=== PATIENT | female | born 1935 | race Caucasian/White ===

== ENCOUNTER 2019-06-05 12:52 | Inpatient (IN) ==
[2019-06-05 13:14] LABS: Hematocrit 36.8 % (35.3-44.9); Hemoglobin 11.6 g/dL (11.5-15.4); Mean Corpuscular HGB Conc 31.5 g/dL (31.6-35.5); Mean Corpuscular Hemoglobin 30.5 pg (28.0-33.3); Mean Corpuscular Volume 96.8 fL (83.0-100.0); Mean Platelet Volume 12.1 fL (9.4-12.4); Platelet Count 168 K/mcL (140-400); Red Cell Distribution Width 12.7 % (11.5-14.5); White Blood Count 4.8 K/mcL (4.3-11.1)
[2019-06-05 13:32] LABS: BUN/Creatinine Ratio 21 (6-26); Blood Urea Nitrogen 17 mg/dL (8-23); Calcium 9.4 mg/dL (8.6-10.3); Carbon Dioxide 24 mEq/L (23-29); Chloride 106 mEq/L (98-107); Glucose 97 mg/dL (70-105); Osmolality,Calculated 289 (280-300); Potassium 3.9 mEq/L (3.5-5.1); Sodium 139 mEq/L (136-145); Troponin I 0.03 ng/mL (< 0.04); eGFR For African Americans > 60 (> 60); eGFR For Non-African Americans > 60 (> 60)
[2019-06-05 13:45] LABS: Bilirubin,Urine Small (Negative); Blood,Urine Negative (Negative); Clarity,Urine Clear (Clear); Color,Urine Yellow (Yellow); Glucose,Urine (UA) Normal (Normal); Ketones,Urine 15 mg/dL (Negative); Leukocyte Esterase,Urine Moderate (Negative); Nitrite,Urine Negative (Negative); Protein,Urine Negative (Neg-Trace); Specific Gravity,Urine 1.022 (1.010-1.025); Urobilinogen,Urine Normal (Normal)
[2019-06-05 13:47] LABS: Bacteria,Urine None Seen per hpf (None-Few); Hyaline Casts,Urine Moderate per lpf (None-Few); RBC,Urine 0-3 per hpf (0-3); Squamous Epithelial Cell,Urine Many per lpf (None-Few); WBC,Urine 15-30 per hpf (0-3)
[2019-06-05 14:04] LABS: Yeast,Urine Few per hpf (None Seen)
[2019-06-05 14:27] LABS: Activated Partial Thrombo Time 34.6 Seconds (26.0-36.0); INR 2.1; Prothrombin Time 23.8 Seconds (9.4-12.1)
[2019-06-05] MEDS ORDERED: Aspirin Enteric Coated 325 MG Tablet PO ONE (15:25)
[2019-06-05] MEDS ORDERED: 0.9 % Sodium Chloride 1,000 ML IVC SCH (15:30)
[2019-06-05] MEDS ORDERED: Isovue-370 500 ML BOTTLE IVP ONE (15:35)
[2019-06-05] MEDS ORDERED: Piperacillin/Tazobactam 3.375 GM in 0.9 % Sodium Chloride Mini Bag 100 ML IVPB SCH (17:00)
[2019-06-05] MEDS: Aspirin Enteric Coated 81 MG Tablet PO SCH (18:16)
[2019-06-05] MEDS: Ertapenem 1,000 MG in 0.9 % Sodium Chloride Mini Bag 100 ML IVPB SCH (18:19)
[2019-06-05 18:29] LABS: Folate 12.5 ng/mL (3.0-16.0)
[2019-06-05] MEDS: Apixaban 5 MG TABLET PO SCH (21:09)
[2019-06-06] MEDS ORDERED: Piperacillin/Tazobactam 3.375 GM in 0.9 % Sodium Chloride Mini Bag 100 ML IVPB SCH
[2019-06-06] MEDS ORDERED: *HR* Metoprolol 5 MG/5 ML VIAL IVP ONE (04:16)
[2019-06-06 04:49] LABS: Hematocrit 35.1 % (35.3-44.9); Hemoglobin 11.4 g/dL (11.5-15.4); Mean Corpuscular HGB Conc 32.5 g/dL (31.6-35.5); Mean Corpuscular Hemoglobin 30.8 pg (28.0-33.3); Mean Corpuscular Volume 94.9 fL (83.0-100.0); Mean Platelet Volume 12.3 fL (9.4-12.4); Platelet Count 223 K/mcL (140-400); Red Cell Distribution Width 12.8 % (11.5-14.5); White Blood Count 6.1 K/mcL (4.3-11.1)
[2019-06-06 05:07] LABS: Alanine Aminotransferase 8 Units/L (7-52); Albumin 3.8 g/dL (3.5-5.7); Albumin/Globulin Ratio 1.7 (1.1-2.2); Alkaline Phosphatase 55 Units/L (34-104); Aspartate Amino Transferase 17 Units/L (13-39); BUN/Creatinine Ratio 16 (6-26); Bilirubin,Total 0.8 mg/dL (0.3-1.0); Blood Urea Nitrogen 12 mg/dL (8-23); Calcium 9.1 mg/dL (8.6-10.3); Carbon Dioxide 23 mEq/L (23-29); Chloride 107 mEq/L (98-107); Chol/HDL Ratio 3.1 (0-4.9); Cholesterol 124 mg/dL (< 200); Globulin 2.3 g/dL (2.4-3.5); Glucose 84 mg/dL (70-105); HDL Cholesterol 40 mg/dL (40-59); LDL Cholesterol,Calculated 69 mg/dL (0-99); Osmolality,Calculated 289 (280-300); Potassium 3.6 mEq/L (3.5-5.1); Sodium 140 mEq/L (136-145); Total Protein 6.1 g/dL (6.4-8.9); Triglycerides 76 mg/dL (< 150); eGFR For African Americans > 60 (> 60); eGFR For Non-African Americans > 60 (> 60)
[2019-06-06 06:03] LABS: INR 1.5; Prothrombin Time 17.5 Seconds (9.4-12.1)
[2019-06-06] MEDS: Ertapenem 1,000 MG in 0.9 % Sodium Chloride Mini Bag 100 ML IVPB SCH (09:07)
[2019-06-06 10:33] LABS: Estimated Average Glucose 105 mg/dl
[2019-06-06] MEDS ORDERED: Cyanocobalamin (B-12) 1,000 MCG/ML VIAL IM ONE (13:44)
[2019-06-06] MEDS: Apixaban 5 MG TABLET PO SCH ×2 (15:02→21:19)
[2019-06-06] MEDS: Aspirin Enteric Coated 81 MG Tablet PO SCH (15:02)
[2019-06-06] MEDS: Cyanocobalamin (B-12) 1,000 MCG TABLET PO SCH (15:02)
[2019-06-07 01:58] LABS: Hematocrit 37.9 % (35.3-44.9); Hemoglobin 12.3 g/dL (11.5-15.4); Mean Corpuscular HGB Conc 32.5 g/dL (31.6-35.5); Mean Corpuscular Hemoglobin 31.8 pg (28.0-33.3); Mean Corpuscular Volume 97.9 fL (83.0-100.0); Mean Platelet Volume 11.7 fL (9.4-12.4); Platelet Count 212 K/mcL (140-400); Red Blood Count 3.87 M/mcL (3.82-4.97); Red Cell Distribution Width 12.8 % (11.5-14.5); White Blood Count 6.2 K/mcL (4.3-11.1)
[2019-06-07 02:17] LABS: BUN/Creatinine Ratio 19 (6-26); Blood Urea Nitrogen 16 mg/dL (8-23); Calcium 9.3 mg/dL (8.6-10.3); Carbon Dioxide 26 mEq/L (23-29); Chloride 107 mEq/L (98-107); Glucose 89 mg/dL (70-105); Osmolality,Calculated 291 (280-300); Potassium 3.7 mEq/L (3.5-5.1); Sodium 140 mEq/L (136-145); eGFR For African Americans > 60 (> 60); eGFR For Non-African Americans > 60 (> 60)
[2019-06-07] MEDS: Apixaban 5 MG TABLET PO SCH ×2 (08:26→20:17)
[2019-06-07] MEDS: Cyanocobalamin (B-12) 1,000 MCG TABLET PO SCH (08:26)
[2019-06-07] MEDS: Aspirin Enteric Coated 81 MG Tablet PO SCH (08:26)
[2019-06-07] MEDS: Ertapenem 1,000 MG in 0.9 % Sodium Chloride Mini Bag 100 ML IVPB SCH (08:29)
[2019-06-07] MEDS: Fluconazole 100 MG TABLET PO SCH (13:30)
[2019-06-08] MEDS ORDERED: *HR* Metoprolol 5 MG/5 ML VIAL IVP ONE (00:28)
[2019-06-08] MEDS: *HR* Metoprolol 5 MG/5 ML VIAL IVP PRN (06:27)
[2019-06-08] MEDS: Aspirin Enteric Coated 81 MG Tablet PO SCH (10:31)
[2019-06-08] MEDS: Fluconazole 100 MG TABLET PO SCH (10:32)
[2019-06-08] MEDS: Apixaban 5 MG TABLET PO SCH ×2 (10:33→21:04)
[2019-06-08] MEDS: Cyanocobalamin (B-12) 1,000 MCG TABLET PO SCH (10:34)
[2019-06-09] MEDS: *HR* Metoprolol 5 MG/5 ML VIAL IVP PRN (04:42)
[2019-06-09] MEDS: Fluconazole 100 MG TABLET PO SCH (07:56)
[2019-06-09] MEDS: Cyanocobalamin (B-12) 1,000 MCG TABLET PO SCH (07:56)
[2019-06-09] MEDS: Apixaban 5 MG TABLET PO SCH ×2 (07:56→22:09)
[2019-06-09] MEDS: Aspirin Enteric Coated 81 MG Tablet PO SCH (07:58)
[2019-06-10 00:58] LABS: Hematocrit 35.8 % (35.3-44.9); Hemoglobin 11.6 g/dL (11.5-15.4); Mean Corpuscular HGB Conc 32.4 g/dL (31.6-35.5); Mean Corpuscular Hemoglobin 31.6 pg (28.0-33.3); Mean Corpuscular Volume 97.5 fL (83.0-100.0); Mean Platelet Volume 12.2 fL (9.4-12.4); Platelet Count 221 K/mcL (140-400); Red Blood Count 3.67 M/mcL (3.82-4.97); Red Cell Distribution Width 12.9 % (11.5-14.5); White Blood Count 5.9 K/mcL (4.3-11.1)
[2019-06-10 01:15] LABS: BUN/Creatinine Ratio 36 (6-26); Blood Urea Nitrogen 28 mg/dL (8-23); Calcium 9.3 mg/dL (8.6-10.3); Carbon Dioxide 26 mEq/L (23-29); Chloride 109 mEq/L (98-107); Glucose 101 mg/dL (70-105); Osmolality,Calculated 300 (280-300); Potassium 3.6 mEq/L (3.5-5.1); Sodium 142 mEq/L (136-145); eGFR For African Americans > 60 (> 60); eGFR For Non-African Americans > 60 (> 60)
[2019-06-10] MEDS: Apixaban 5 MG TABLET PO SCH ×2 (08:04→21:12)
[2019-06-10] MEDS: Cyanocobalamin (B-12) 1,000 MCG TABLET PO SCH (08:04)
[2019-06-10] MEDS: Aspirin Enteric Coated 81 MG Tablet PO SCH (08:04)
[2019-06-11] MEDS: Cyanocobalamin (B-12) 1,000 MCG TABLET PO SCH (08:55)
[2019-06-11] MEDS: Apixaban 5 MG TABLET PO SCH ×2 (08:55→20:10)
[2019-06-11] MEDS: Aspirin Enteric Coated 81 MG Tablet PO SCH (08:55)
[2019-06-12] MEDS: Aspirin Enteric Coated 81 MG Tablet PO SCH (09:02)
[2019-06-12] MEDS: Cyanocobalamin (B-12) 1,000 MCG TABLET PO SCH (09:02)
[2019-06-12] MEDS: Apixaban 5 MG TABLET PO SCH (09:02)
[2019-06-12 11:38] VITALS: BP 147/86
== END 2019-06-12 15:12 | DRG 689 ==
LOC: 3BNU 12:52 → EMEROOARM 12:52 → 3BNU 15:27
PROVIDERS: ADMIT Family Medicine; ATTEND Family Medicine

== ENCOUNTER 2019-11-26 10:53 | Observation (INO) ==
[2019-11-26 11:36] LABS: Basophils # 0.1 K/mcL (0.0-0.2); Basophils % 0.5 %; Eosinophils # 0.1 K/mcL (0.0-0.6); Eosinophils % 1.1 %; Hemoglobin 12.3 g/dL (11.5-15.4); Immature Granulocytes % 0.3 % (0-4); Lymphocytes # 1.1 K/mcL (0.6-4.6); Lymphocytes % 10.5 %; Mean Corpuscular HGB Conc 32.4 g/dL (31.6-35.5); Mean Corpuscular Hemoglobin 30.8 pg (28.0-33.3); Mean Platelet Volume 11.1 fL (9.4-12.4); Monocytes # 0.7 K/mcL (0.0-1.3); Monocytes % 6.3 %; Neutrophils # 8.4 K/mcL (1.6-8.9); Platelet Count 403 K/mcL (140-400); Red Cell Distribution Width 13.8 % (11.5-14.5); Segmented Neutrophils % 81.3 %; White Blood Count 10.3 K/mcL (4.3-11.1)
[2019-11-26 12:03] LABS: BUN/Creatinine Ratio 27 (6-26); Blood Urea Nitrogen 21 mg/dL (8-23); Calcium 8.8 mg/dL (8.6-10.3); Carbon Dioxide 25 mEq/L (23-29); Chloride 104 mEq/L (98-107); Glucose 89 mg/dL (70-105); Osmolality,Calculated 282 (280-300); Potassium 4.3 mEq/L (3.5-5.1); Sodium 135 mEq/L (136-145); Troponin I < 0.03 ng/mL (< 0.04); eGFR For African Americans > 60 (> 60); eGFR For Non-African Americans > 60 (> 60)
[2019-11-26 12:36] LABS: Amorphous Sediment,Urine Few per hpf (None-Few); Bacteria,Urine Moderate per hpf (None-Few); Bilirubin,Urine Negative (Negative); Blood,Urine Negative (Negative); Calcium Oxalate Crystals,Urine Present; Clarity,Urine Turbid (Clear); Color,Urine Yellow (Yellow); Glucose,Urine (UA) Normal (Normal); Ketones,Urine Negative (Negative); Leukocyte Esterase,Urine Negative (Negative); Mucus,Urine Many per lpf (None-Few); Nitrite,Urine Positive (Negative); PH,Urine 6.5 pH Units (5.0-8.0); Protein,Urine Trace mg/dL (Neg-Trace); Specific Gravity,Urine 1.021 (1.010-1.025); Squamous Epithelial Cell,Urine Few per hpf (None-Few); Urobilinogen,Urine Normal (Normal); WBC,Urine 0-3 per hpf (0-3)
[2019-11-26] MEDS ORDERED: Naloxone 0.4 MG/ML INJ IVP PRN (14:37)
[2019-11-26] MEDS: Apixaban 5 MG TABLET PO SCH (20:50)
[2019-11-27 02:33] LABS: Hematocrit 32.7 % (35.3-44.9); Mean Corpuscular HGB Conc 31.5 g/dL (31.6-35.5); Mean Corpuscular Hemoglobin 29.3 pg (28.0-33.3); Mean Corpuscular Volume 93.2 fL (83.0-100.0); Mean Platelet Volume 11.3 fL (9.4-12.4); Platelet Count 386 K/mcL (140-400); Red Blood Count 3.51 M/mcL (3.82-4.97); White Blood Count 11.4 K/mcL (4.3-11.1)
[2019-11-27 02:37] LABS: Hemoglobin 10.3 g/dL (11.5-15.4)
[2019-11-27 02:45] LABS: BUN/Creatinine Ratio 29 (6-26); Blood Urea Nitrogen 22 mg/dL (8-23); Calcium 8.4 mg/dL (8.6-10.3); Carbon Dioxide 25 mEq/L (23-29); Chloride 104 mEq/L (98-107); Glucose 87 mg/dL (70-105); Osmolality,Calculated 281 (280-300); Potassium 4.2 mEq/L (3.5-5.1); Sodium 134 mEq/L (136-145); eGFR For African Americans > 60 (> 60); eGFR For Non-African Americans > 60 (> 60)
[2019-11-27] MEDS: DilTIAZem CD (24hr) 120 MG CAP.ER.24H PO SCH (08:17)
[2019-11-27] MEDS: Apixaban 5 MG TABLET PO SCH ×2 (08:17→21:18)
[2019-11-27] MEDS: Artificial Tears SOLN 15 ML BOTTLE BOTH EYES SCH ×2 (16:38→21:22)
[2019-11-28 03:23] LABS: Basophils # 0.1 K/mcL (0.0-0.2); Basophils % 0.5 %; Eosinophils # 0.4 K/mcL (0.0-0.6); Eosinophils % 3.1 %; Hematocrit 31.1 % (35.3-44.9); Immature Granulocytes % 0.4 % (0-4); Lymphocytes # 1.3 K/mcL (0.6-4.6); Lymphocytes % 11.5 %; Mean Corpuscular HGB Conc 32.2 g/dL (31.6-35.5); Mean Corpuscular Hemoglobin 30.8 pg (28.0-33.3); Mean Corpuscular Volume 95.7 fL (83.0-100.0); Mean Platelet Volume 11.2 fL (9.4-12.4); Monocytes # 0.9 K/mcL (0.0-1.3); Monocytes % 8.4 %; Neutrophils # 8.5 K/mcL (1.6-8.9); Platelet Count 371 K/mcL (140-400); Red Blood Count 3.25 M/mcL (3.82-4.97); Red Cell Distribution Width 13.9 % (11.5-14.5); Segmented Neutrophils % 76.1 %; White Blood Count 11.2 K/mcL (4.3-11.1)
[2019-11-28 03:39] LABS: BUN/Creatinine Ratio 32 (6-26); Blood Urea Nitrogen 23 mg/dL (8-23); Calcium 8.4 mg/dL (8.6-10.3); Carbon Dioxide 24 mEq/L (23-29); Chloride 105 mEq/L (98-107); Glucose 88 mg/dL (70-105); Osmolality,Calculated 283 (280-300); Potassium 4.1 mEq/L (3.5-5.1); Sodium 135 mEq/L (136-145); eGFR For African Americans > 60 (> 60); eGFR For Non-African Americans > 60 (> 60)
[2019-11-28] MEDS: DilTIAZem CD (24hr) 120 MG CAP.ER.24H PO SCH (07:56)
[2019-11-28] MEDS: Apixaban 5 MG TABLET PO SCH ×2 (07:56→20:43)
[2019-11-28] MEDS: Artificial Tears SOLN 15 ML BOTTLE BOTH EYES SCH ×4 (07:56→20:44)
[2019-11-28] MEDS ORDERED: Fosfomycin Tromethamine 3 GM Packet PO ONE ×2 (09:45→10:00)
[2019-11-28] MEDS ORDERED: levoFLOXacin 750 MG TABLET PO SCH (10:00)
[2019-11-28 17:12] LABS: Adenovirus Not Detected (Not Detect); Bordetella Pertussis Not Detected (Not Detect); Chlamydophila pneumoniae Not Detected (Not Detect); Coronavirus 229E Not Detected (Not Detect); Coronavirus HKU1 Not Detected (Not Detect); Coronavirus NL63 Not Detected (Not Detect); Coronavirus OC43 Not Detected (Not Detect); Human Metapneumovirus Not Detected (Not Detect); Human Rhinovirus/Enterovirus Not Detected (Not Detect); Influenza A Subtype 2009 H1 Not Detected (Not Detect); Influenza B Not Detected (Not Detect); Mycoplasma pneumoniae Not Detected (Not Detect); Parainfluenza Virus 1 Not Detected (Not Detect); Parainfluenza Virus 2 Not Detected (Not Detect); Parainfluenza Virus 3 Not Detected (Not Detect); Parainfluenza Virus 4 Not Detected (Not Detect); Respiratory Syncytial Virus Not Detected (Not Detect); SARS-CoV-2 Not Detected (Not Detect)
[2019-11-29 05:28] LABS: Basophils # 0.1 K/mcL (0.0-0.2); Basophils % 0.7 %; Eosinophils # 0.1 K/mcL (0.0-0.6); Eosinophils % 1.2 %; Hematocrit 32.8 % (35.3-44.9); Hemoglobin 10.2 g/dL (11.5-15.4); Immature Granulocytes % 0.6 % (0-4); Lymphocytes # 1.3 K/mcL (0.6-4.6); Lymphocytes % 12.5 %; Mean Corpuscular HGB Conc 31.1 g/dL (31.6-35.5); Mean Corpuscular Hemoglobin 30.3 pg (28.0-33.3); Mean Corpuscular Volume 97.3 fL (83.0-100.0); Mean Platelet Volume 10.9 fL (9.4-12.4); Monocytes # 0.9 K/mcL (0.0-1.3); Monocytes % 8.5 %; Neutrophils # 7.8 K/mcL (1.6-8.9); Platelet Count 396 K/mcL (140-400); Red Blood Count 3.37 M/mcL (3.82-4.97); Red Cell Distribution Width 13.9 % (11.5-14.5); Segmented Neutrophils % 76.5 %; White Blood Count 10.2 K/mcL (4.3-11.1)
[2019-11-29 05:33] LABS: BUN/Creatinine Ratio 32 (6-26); Blood Urea Nitrogen 24 mg/dL (8-23); Calcium 8.5 mg/dL (8.6-10.3); Carbon Dioxide 27 mEq/L (23-29); Chloride 105 mEq/L (98-107); Glucose 89 mg/dL (70-105); Osmolality,Calculated 284 (280-300); Potassium 4.5 mEq/L (3.5-5.1); Sodium 135 mEq/L (136-145); eGFR For African Americans > 60 (> 60); eGFR For Non-African Americans > 60 (> 60)
[2019-11-29 07:01] VITALS: BP 117/77
[2019-11-29] MEDS: DilTIAZem CD (24hr) 120 MG CAP.ER.24H PO SCH (07:26)
[2019-11-29] MEDS: Apixaban 5 MG TABLET PO SCH (07:26)
[2019-11-29] MEDS: Artificial Tears SOLN 15 ML BOTTLE BOTH EYES SCH (07:26)
[2019-11-29] MEDS ORDERED: Furosemide 40 MG/4 ML VIAL IVP ONE (07:45)
[2019-11-29] MEDS ORDERED: Isovue-370 500 ML BOTTLE IVP ONE (07:47)
[2019-11-29] MEDS ORDERED: FLU Vac QV 20-21 (6Month+)/PF 0.5 ML SYRINGE IM ONE (10:19)
== END 2019-11-29 13:10 | disposition home health service (06) ==
LOC: 3ANU 10:53 → EMEROOARM 10:53 → SUATTDRO 13:32 → 3ANU 14:19
PROVIDERS: ADMIT Internal Medicine; ATTEND Family Medicine

== ENCOUNTER 2019-11-30 12:23 | Observation (INO) ==
[2019-11-30] MEDS ORDERED: Isovue-370 500 ML BOTTLE IVP ONE (12:29)
[2019-11-30 13:01] LABS: Hematocrit 38.4 % (35.3-44.9); Hemoglobin 11.7 g/dL (11.5-15.4); Mean Corpuscular HGB Conc 30.5 g/dL (31.6-35.5); Mean Corpuscular Hemoglobin 29.6 pg (28.0-33.3); Mean Corpuscular Volume 97.2 fL (83.0-100.0); Mean Platelet Volume 10.7 fL (9.4-12.4); Platelet Count 473 K/mcL (140-400); Red Blood Count 3.95 M/mcL (3.82-4.97); Red Cell Distribution Width 14.2 % (11.5-14.5); White Blood Count 9.6 K/mcL (4.3-11.1)
[2019-11-30 13:09] LABS: INR 1.8; Prothrombin Time 20.1 Seconds (9.4-12.1)
[2019-11-30 13:12] LABS: Activated Partial Thrombo Time 31.2 Seconds (26.0-36.0)
[2019-11-30 13:15] LABS: BUN/Creatinine Ratio 24 (6-26); Blood Urea Nitrogen 20 mg/dL (8-23); Calcium 8.9 mg/dL (8.6-10.3); Carbon Dioxide 24 mEq/L (23-29); Chloride 103 mEq/L (98-107); Glucose 84 mg/dL (70-105); Osmolality,Calculated 278 (280-300); Potassium 4.4 mEq/L (3.5-5.1); Sodium 133 mEq/L (136-145); eGFR For African Americans > 60 (> 60); eGFR For Non-African Americans > 60 (> 60)
[2019-11-30 13:38] LABS: Troponin I < 0.03 ng/mL (< 0.04)
[2019-11-30] MEDS ORDERED: Azithromycin 500 MG in 0.9 % Sodium Chloride 250 ML IVPB ONE (14:23)
[2019-11-30] MEDS ORDERED: cefTRIAXone 1,000 MG in Water for inj. (sterile) 10 ML IVP ONE (14:23)
[2019-11-30 14:42] LABS: Bilirubin,Urine Negative (Negative); Blood,Urine Negative (Negative); Clarity,Urine Clear (Clear); Color,Urine Yellow (Yellow); Glucose,Urine (UA) Normal (Normal); Ketones,Urine Negative (Negative); Leukocyte Esterase,Urine Negative (Negative); Nitrite,Urine Negative (Negative); Protein,Urine Trace mg/dL (Neg-Trace); Specific Gravity,Urine > 1.030 (1.010-1.025); Urobilinogen,Urine Normal (Normal)
[2019-11-30 16:33] LABS: Adenovirus Not Detected (Not Detect); Bordetella Pertussis Not Detected (Not Detect); Chlamydophila pneumoniae Not Detected (Not Detect); Coronavirus 229E Not Detected (Not Detect); Coronavirus HKU1 Not Detected (Not Detect); Coronavirus NL63 Not Detected (Not Detect); Coronavirus OC43 Not Detected (Not Detect); Human Metapneumovirus Not Detected (Not Detect); Human Rhinovirus/Enterovirus Not Detected (Not Detect); Influenza A Subtype 2009 H1 Not Detected (Not Detect); Influenza B Not Detected (Not Detect); Mycoplasma pneumoniae Not Detected (Not Detect); Parainfluenza Virus 1 Not Detected (Not Detect); Parainfluenza Virus 2 Not Detected (Not Detect); Parainfluenza Virus 3 Not Detected (Not Detect); Parainfluenza Virus 4 Not Detected (Not Detect); Respiratory Syncytial Virus Not Detected (Not Detect); SARS-CoV-2 Not Detected (Not Detect)
[2019-11-30] MEDS ORDERED: Naloxone 0.4 MG/ML INJ IVP PRN (17:55)
[2019-11-30] MEDS ORDERED: Perflutren Lipid Microsphere 1.3 ML in 0.9 % Sodium Chloride 8.7 ML IVP PRN (18:05)
[2019-11-30 19:04] LABS: Magnesium 2.1 mg/dL (1.6-2.6)
[2019-11-30] MEDS: 0.9 % Sodium Chloride 1,000 ML IVC SCH (19:04)
[2019-11-30] MEDS: Doxycycline 100 MG in 0.9 % Sodium Chloride Mini Bag 100 ML IVPB SCH (19:13)
[2019-11-30 19:16] LABS: Thyroid Stimulating Hormone 5.105 mcIU/mL (0.340-5.600)
[2019-11-30] MEDS: Apixaban 2.5 MG TABLET PO SCH (21:57)
[2019-12-01 01:57] LABS: Basophils # 0.1 K/mcL (0.0-0.2); Basophils % 0.6 %; Eosinophils # 0.3 K/mcL (0.0-0.6); Eosinophils % 2.9 %; Hematocrit 33.8 % (35.3-44.9); Hemoglobin 10.6 g/dL (11.5-15.4); Immature Granulocytes % 0.6 % (0-4); Lymphocytes # 1.6 K/mcL (0.6-4.6); Mean Corpuscular HGB Conc 31.4 g/dL (31.6-35.5); Mean Corpuscular Hemoglobin 30.2 pg (28.0-33.3); Mean Corpuscular Volume 96.3 fL (83.0-100.0); Mean Platelet Volume 10.9 fL (9.4-12.4); Monocytes # 0.7 K/mcL (0.0-1.3); Monocytes % 8.6 %; Neutrophils # 5.9 K/mcL (1.6-8.9); Platelet Count 438 K/mcL (140-400); Red Blood Count 3.51 M/mcL (3.82-4.97); Red Cell Distribution Width 14.1 % (11.5-14.5); Segmented Neutrophils % 68.3 %; White Blood Count 8.6 K/mcL (4.3-11.1)
[2019-12-01 02:08] LABS: INR 1.5; Prothrombin Time 17.2 Seconds (9.4-12.1)
[2019-12-01 02:16] LABS: BUN/Creatinine Ratio 28 (6-26); Blood Urea Nitrogen 23 mg/dL (8-23); Calcium 8.8 mg/dL (8.6-10.3); Carbon Dioxide 26 mEq/L (23-29); Chloride 104 mEq/L (98-107); Glucose 75 mg/dL (70-105); Osmolality,Calculated 284 (280-300); Potassium 5.2 mEq/L (3.5-5.1); Sodium 136 mEq/L (136-145); eGFR For African Americans > 60 (> 60); eGFR For Non-African Americans > 60 (> 60)
[2019-12-01] MEDS: Doxycycline 100 MG in 0.9 % Sodium Chloride Mini Bag 100 ML IVPB SCH ×2 (05:55→17:50)
[2019-12-01] MEDS: 0.9 % Sodium Chloride 1,000 ML IVC SCH (05:56)
[2019-12-01] MEDS: Apixaban 2.5 MG TABLET PO SCH ×2 (07:29→20:30)
[2019-12-01] MEDS: DilTIAZem CD (24hr) 120 MG CAP.ER.24H PO SCH (07:29)
[2019-12-01] MEDS: cefTRIAXone 1,000 MG in Water for inj. (sterile) 10 ML IVP SCH (07:29)
[2019-12-01 14:08] LABS: Estimated Average Glucose 111 mg/dl
[2019-12-02] MEDS: Doxycycline 100 MG in 0.9 % Sodium Chloride Mini Bag 100 ML IVPB SCH ×2 (05:25→16:24)
[2019-12-02] MEDS: DilTIAZem CD (24hr) 120 MG CAP.ER.24H PO SCH (08:19)
[2019-12-02] MEDS: cefTRIAXone 1,000 MG in Water for inj. (sterile) 10 ML IVP SCH (08:19)
[2019-12-02] MEDS: Apixaban 2.5 MG TABLET PO SCH ×2 (08:19→20:07)
[2019-12-03 05:08] LABS: Hematocrit 31.9 % (35.3-44.9); Hemoglobin 9.8 g/dL (11.5-15.4); Mean Corpuscular HGB Conc 30.7 g/dL (31.6-35.5); Mean Corpuscular Hemoglobin 29.4 pg (28.0-33.3); Mean Corpuscular Volume 95.8 fL (83.0-100.0); Mean Platelet Volume 11.1 fL (9.4-12.4); Platelet Count 390 K/mcL (140-400); Red Blood Count 3.33 M/mcL (3.82-4.97); Red Cell Distribution Width 14.4 % (11.5-14.5); White Blood Count 8.7 K/mcL (4.3-11.1)
[2019-12-03] MEDS: Doxycycline 100 MG in 0.9 % Sodium Chloride Mini Bag 100 ML IVPB SCH ×2 (05:11→17:37)
[2019-12-03 05:20] LABS: BUN/Creatinine Ratio 28 (6-26); Blood Urea Nitrogen 19 mg/dL (8-23); Calcium 8.9 mg/dL (8.6-10.3); Carbon Dioxide 27 mEq/L (23-29); Chloride 106 mEq/L (98-107); Glucose 85 mg/dL (70-105); Magnesium 1.9 mg/dL (1.6-2.6); Osmolality,Calculated 282 (280-300); Potassium 4.3 mEq/L (3.5-5.1); Sodium 135 mEq/L (136-145); eGFR For African Americans > 60 (> 60); eGFR For Non-African Americans > 60 (> 60)
[2019-12-03] MEDS: cefTRIAXone 1,000 MG in Water for inj. (sterile) 10 ML IVP SCH (07:30)
[2019-12-03] MEDS: DilTIAZem CD (24hr) 120 MG CAP.ER.24H PO SCH (07:30)
[2019-12-03] MEDS: Apixaban 2.5 MG TABLET PO SCH ×2 (07:30→19:37)
[2019-12-03] MEDS: Doxycycline 100 MG CAPSULE PO SCH (19:37)
[2019-12-04 05:47] LABS: Hematocrit 30.6 % (35.3-44.9); Hemoglobin 9.5 g/dL (11.5-15.4); Mean Corpuscular Hemoglobin 29.9 pg (28.0-33.3); Mean Corpuscular Volume 96.2 fL (83.0-100.0); Mean Platelet Volume 11.2 fL (9.4-12.4); Platelet Count 388 K/mcL (140-400); Red Blood Count 3.18 M/mcL (3.82-4.97); Red Cell Distribution Width 14.3 % (11.5-14.5); White Blood Count 9.3 K/mcL (4.3-11.1)
[2019-12-04 06:00] LABS: BUN/Creatinine Ratio 24 (6-26); Blood Urea Nitrogen 18 mg/dL (8-23); Calcium 8.6 mg/dL (8.6-10.3); Carbon Dioxide 27 mEq/L (23-29); Chloride 105 mEq/L (98-107); Glucose 81 mg/dL (70-105); Osmolality,Calculated 281 (280-300); Potassium 4.3 mEq/L (3.5-5.1); Sodium 135 mEq/L (136-145); eGFR For African Americans > 60 (> 60); eGFR For Non-African Americans > 60 (> 60)
[2019-12-04] MEDS: Doxycycline 100 MG CAPSULE PO SCH (08:10)
[2019-12-04] MEDS: Apixaban 2.5 MG TABLET PO SCH (08:10)
[2019-12-04] MEDS: DilTIAZem CD (24hr) 120 MG CAP.ER.24H PO SCH (08:10)
[2019-12-04] MEDS: cefTRIAXone 1,000 MG in Water for inj. (sterile) 10 ML IVP SCH (08:13)
[2019-12-04] MEDS ORDERED: amLODIPine 5 MG TABLET PO SCH (09:00)
[2019-12-04 10:38] VITALS: BP 108/64
== END 2019-12-04 12:44 | disposition home or self-care (01) ==
LOC: EMEROOARM 12:23 → 3BNU 12:23 → SUATTDRO 16:41 → 3BNU 17:21
PROVIDERS: ADMIT Internal Medicine; ATTEND Internal Medicine